=== PATIENT | male | born 1965 | race American Indian/Alaskan Native ===

== ENCOUNTER 2020-10-23 03:53 | Emergency (ER) | payer MEDICARE ==
--- NOTE | 2020-10-23 10:39 | Electrocardiograph Report ---
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
[2020-10-23] MEDS ORDERED: levETIRAcetam 1000 MG/NS 0.75% 1,000 MG/100 ML BAG IV ONE (14:03)
--- NOTE | 2020-10-23 14:03 | Emergency Department Report ---
ED Chest Pain HPI - General Chief Complaint: Chest Pain Stated Complaint: CHEST PAIN Time Seen by Provider: 10/23/20 13:26 Source: patient Mode of arrival: Stretcher Limitations: No Limitations, Physical Limitation - History of Present Illness Initial Comments: This is a 58-year-old -[place] male presents to the emergency department via EMS with complaint of midsternal chest pain and shortness of breath that started last night. The patient does admit to smoking crack cocaine earlier this morning. He also says that he had a seizure. He admits to a history of a seizure disorder but says that he is not on any medication for it as "they sto pped giving it to me." His last seizure was about 6 months ago. Patient also has a past medical history of hypertension, diabetes, GERD. He tried an aspirin for his symptoms without any relief, although he cannot tell me whether it was a baby aspirin or full dose. No recent travel or sick contacts at home. - Related Data Home Medications Medication Instructions Recorded Confirmed Last Taken Lisinopril 40 mg PO DAILY 04/19/15 05/17/15 04/20/15 06:00 Pepcid 1 tab PO DAILY 04/19/15 05/17/15 04/19/15 09:00 Propranolol 60 mg PO PRN PRN 04/19/15 05/17/15 04/19/15 09:00 Simvastatin 20 mg PO DAILY 04/19/15 05/17/15 04/19/15 09:00 Previous Rx's Medication Instructions Recorded Last Taken Type Albuterol Mdi (or & Nicu Only) 2 puff IH QID PRN #8.5 gram 10/23/20 Unknown Rx [ProAir HFA Inhaler] Ibuprofen [Motrin 600 MG tab] 600 mg PO Q8H PRN #20 tablet 10/23/20 Unknown Rx levETIRAcetam [Keppra TAB] 500 mg PO BID #60 tablet 10/23/20 Unknown Rx Allergies Allergy/AdvReac Type Severity Reaction Status Date / Time No Known Allergies Allergy Verified 10/23/20 04:07 Heart Score - HEART Score History: Slightly suspicious EKG: Non-specific Age: 45-65 Risk factors: 1-2 risk factors Troponin: < normal limit HEART Score: 3 - EKG Read Time Time EKG Completed: 04:02 EKG Read Time: 04:09 - Critical Actions Critical Actions: 0-3 pts:0.9-1.7%risk of adverse cardiac event.Candidate for discharge ED Review of Systems ROS: Stated complaint: CHEST PAIN Other details as noted in HPI Comment: All other systems reviewed and negative Constitutional: denies: chills, fever Eyes: denies: eye pain, vision change ENT: denies: ear pain, throat pain Respiratory: shortness of breath. denies: cough Cardiovascular: chest pain. denies: palpitations, edema Gastrointestinal: denies: abdominal pain, vomiting Genitourinary: denies: dysuria, discharge Musculoskeletal: denies: back pain, joint swelling Skin: denies: rash, change in color Neurological: other (seizure). denies: headache, weakness ED Past Medical Hx - Past Medical History Hx Hypertension: Yes Hx GERD: Yes Hx Arthritis: Yes (LEFT SHOULDER) Hx Headaches / Migraines: Yes (MIGRAINES) - Surgical History Past Surgical History?: No - Social History Smoking Status: Never Smoker Substance Use Type: None - Medications Home Medications: Home Medications Medication Instructions Recorded Confirmed Last Taken Type Lisinopril 40 mg PO DAILY 04/19/15 05/17/15 04/20/15 06:00 History Pepcid 1 tab PO DAILY 04/19/15 05/17/15 04/19/15 09:00 History Propranolol 60 mg PO PRN PRN 04/19/15 05/17/15 04/19/15 09:00 History Simvastatin 20 mg PO DAILY 04/19/15 05/17/15 04/19/15 09:00 History Albuterol Mdi (or & Nicu Only) 2 puff IH QID PRN #8.5 gram 10/23/20 Unknown Rx [ProAir HFA Inhaler] Ibuprofen [Motrin 600 MG tab] 600 mg PO Q8H PRN #20 tablet 10/23/20 Unknown Rx levETIRAcetam [Keppra TAB] 500 mg PO BID #60 tablet 10/23/20 Unknown Rx ED Physical Exam - General Limitations: No Limitations - Other Other exam information: GENERAL: The patient is well-developed well-nourished. HENT: Normocephalic. Atraumatic. Patient has moist mucous membranes. EYES: Extraocular motions are intact. NECK: Supple. Trachea is midline. CHEST/LUNGS: Clear to auscultation. There is no respiratory distress noted. HEART/CARDIOVASCULAR: Regular. There is no tachycardia. There is no murmur. ABDOMEN: Abdomen is soft, nontender. Patient has normal bowel sounds. There is no abdominal distention. SKIN: Skin is warm and dry. NEURO: The patient is awake, alert, and oriented. The patient is cooperative. The patient has no focal neurologic deficits. Normal speech. Cranial nerves II through XII grossly intact. MUSCULOSKELETAL: There is no tenderness or deformity. There is no limitation range of motion. ED Course Vital Signs 10/23/20 10/23/20 10/23/20 04:06 14:04 19:00 Temperature 97.8 F Pulse Rate 89 60 Respiratory 18 17 Rate Blood Pressure 116/72 Blood Pressure 124/79 [Left] O2 Sat by Pulse 96 98 100 Oximetry 10/23/20 20:00 Temperature Pulse Rate 64 Respiratory 16 Rate Blood Pressure Blood Pressure 127/68 [Left] O2 Sat by Pulse Oximetry ADAM score - Aadm Score Age > 65: (0) No Aspirin use within the Past 7 Days: (0) No 3 or more CAD Risk Factors: (0) No 2 or more Angina events in past 24 hrs: (1) Yes Known CAD with more than 50% Stenosis: (0) No Elevated Cardiac Markers: (0) No ST Deviation Greater than 0.5mm: (0) No ADAM Score: 1 ED Medical Decision Making - Lab Data Result diagrams: 10/23/20 14:34 10/23/20 14:34 Lab Results 10/23/20 10/23/20 10/23/20 Range/Units 14:23 14:34 14:34 WBC 4.8 (4.5-11.0) K/mm3 RBC 4.14 (3.65-5.03) M/mm3 Hgb 12.7 (11.8-15.2) gm/dl Hct 38.2 (35.5-45.6) % MCV 92 (84-94) fl MCH 31 (28-32) pg MCHC 33 (32-34) % RDW 15.0 (13.2-15.2) % Plt Count 171 (140-440) K/mm3 Lymph % (Auto) 15.8 (13.4-35.0) % Mclean % (Auto) 13.1 H (0.0-7.3) % Eos % (Auto) 3.5 (0.0-4.3) % Baso % (Auto) 0.4 (0.0-1.8) % Lymph # (Auto) 0.8 L (1.2-5.4) K/mm3 Mclean # (Auto) 0.6 (0.0-0.8) K/mm3 Eos # (Auto) 0.2 (0.0-0.4) K/mm3 Baso # (Auto) 0.0 (0.0-0.1) K/mm3 Seg Neutrophils % 67.2 (40.0-70.0) % Seg Neutrophils # 3.2 (1.8-7.7) K/mm3 D-Dimer 536.62 H (0-234) ng/mlDDU Sodium (137-145) mmol/L Potassium (3.6-5.0) mmol/L Chloride (98-107) mmol/L Carbon Dioxide (22-30) mmol/L Anion Gap mmol/L BUN (9-20) mg/dL Creatinine (0.8-1.3) mg/dL Estimated GFR ml/min BUN/Creatinine Ratio % Glucose (75-100) mg/dL Calcium (8.4-10.2) mg/dL Total Bilirubin (0.1-1.2) mg/dL AST (5-40) units/L ALT (7-56) units/L Alkaline Phosphatase (35-129) units/L Troponin T (0.00-0.029) ng/mL Total Protein (6.3-8.2) g/dL Albumin (3.9-5) g/dL Albumin/Globulin Ratio % Urine Color (Yellow) Urine Turbidity (Clear) Urine pH (5.0-7.0) Ur Specific [place] (1.003-1.030) Urine Protein (Negative) mg/dL Urine Glucose (UA) (Negative) mg/dL Urine Ketones (Negative) mg/dL Urine Blood (Negative) Urine Nitrite (Negative) Urine Bilirubin (Negative) Urine Urobilinogen (<2.0) mg/dL Ur Leukocyte Esterase (Negative) Urine WBC (Auto) (0.0-6.0) /HPF Urine RBC (Auto) (0.0-6.0) /HPF Urine Mucus /HPF Urine Opiates Screen Positive Urine Methadone Screen Negative Ur Barbiturates Screen Negative Ur Phencyclidine Scrn Negative Ur Amphetamines Screen Negative U Benzodiazepines Scrn Negative Urine Cocaine Screen Positive U Marijuana (THC) Screen Negative Drugs of Abuse Note Disclamer 10/23/20 10/23/20 10/23/20 Range/Units 14:34 17:22 Unknown WBC (4.5-11.0) K/mm3 RBC (3.65-5.03) M/mm3 Hgb (11.8-15.2) gm/dl Hct (35.5-45.6) % MCV (84-94) fl MCH (28-32) pg MCHC (32-34) % RDW (13.2-15.2) % Plt Count (140-440) K/mm3 Lymph % (Auto) (13.4-35.0) % Mclean % (Auto) (0.0-7.3) % Eos % (Auto) (0.0-4.3) % Baso % (Auto) (0.0-1.8) % Lymph # (Auto) (1.2-5.4) K/mm3 Mclean # (Auto) (0.0-0.8) K/mm3 Eos # (Auto) (0.0-0.4) K/mm3 Baso # (Auto) (0.0-0.1) K/mm3 Seg Neutrophils % (40.0-70.0) % Seg Neutrophils # (1.8-7.7) K/mm3 D-Dimer (0-234) ng/mlDDU Sodium 142 (137-145) mmol/L Potassium 4.1 (3.6-5.0) mmol/L Chloride 105.5 (98-107) mmol/L Carbon Dioxide 26 (22-30) mmol/L Anion Gap 15 mmol/L BUN 21 H (9-20) mg/dL Creatinine 0.9 (0.8-1.3) mg/dL Estimated GFR > 60 ml/min BUN/Creatinine Ratio 23 % Glucose 97 (75-100) mg/dL Calcium 8.6 (8.4-10.2) mg/dL Total Bilirubin < 3.00 H (0.1-1.2) mg/dL AST 18 (5-40) units/L ALT 16 (7-56) units/L Alkaline Phosphatase 72 (35-129) units/L Troponin T < 0.010 < 0.010 (0.00-0.029) ng/mL Total Protein 6.7 (6.3-8.2) g/dL Albumin 4.1 (3.9-5) g/dL Albumin/Globulin Ratio 1.6 % Urine Color Sunshine (Yellow) Urine Turbidity Turbid (Clear) Urine pH 5.0 (5.0-7.0) Ur Specific [place] 1.031 H (1.003-1.030) Urine Protein 100 mg/dl (Negative) mg/dL Urine Glucose (UA) 50 (Negative) mg/dL Urine Ketones Neg (Negative) mg/dL Urine Blood Neg (Negative) Urine Nitrite Neg (Negative) Urine Bilirubin Neg (Negative) Urine Urobilinogen < 2.0 (<2.0) mg/dL Ur Leukocyte Esterase Neg (Negative) Urine WBC (Auto) 7.0 H (0.0-6.0) /HPF Urine RBC (Auto) 6.0 (0.0-6.0) /HPF Urine Mucus 3+ /HPF Urine Opiates Screen Urine Methadone Screen Ur Barbiturates Screen Ur Phencyclidine Scrn Ur Amphetamines Screen U Benzodiazepines Scrn Urine Cocaine Screen U Marijuana (THC) Screen Drugs of Abuse Note - EKG Data -: EKG Interpreted by Me EKG shows normal: sinus rhythm, axis, intervals, QRS complexes (LVH), ST-T waves (Nonspecific T waves lateral leads) Rate: normal - EKG Data When compared to previous EKG there are: previous EKG unavailable Interpretation: other (Sinus rhythm at 86 bpm, normal axis, normal intervals, L VH, nonspecific T waves to the anterolateral leads) - Radiology Data Radiology results: image reviewed interpreted by me: Chest x-ray does not show any acute process. There are no pleural effusions, obvious pneumonia and there is no pneumothorax. No widened mediastinum. - Medical Decision Making This patient presents to the emergency department with complaint of midsternal chest pain that has been going on since last night or early this morning. He also complains of having a seizure with history of a seizure disorder, but noncompliant on medications. The patient also admits to recent crack cocaine use. Heart and lung sounds are normal to auscultation. The patient does not appear in any respiratory or acute distress. No focal, motor or sensory deficits and his cranial nerves are intact. EKG does not have any morphology consistent with ST elevation myocardial infarction. Patient was given a loading dose of Keppra. Chest x-ray does not show any pneumonia, pleural effusions, pneumothorax, widened mediastinum, or any other acute process. Labs have been mostly unremarkable including CBC, metabolic panel, negative troponins x2, but the patient did have an elevated and equivocal D-dimer. For this reason the patient had a CT angiography of the chest that did not show any pulmonary embolism, dissection, or any other acute process. Vital signs have been reassuring throughout his ED course including being afebrile. The patient is low on the heart and ADAM score. For all these reasons the patient appears safe for discharge home at this time. His contact information has been sent over to the [facility], and someone from their office should be contacting him shortly for close outpatient follow-up as part of our [facility] low risk chest pain protocol. We discussed avoiding any further illicit drug use, any alcohol use/abuse. Patient has been given a prescription for Keppra. He understands that he is not allowed to drive or operate any heavy machinery due to his seizure disorder. He has been given an outpatient referral for a local neurologist. He will return to the emergency department with any worsening of his symptoms or with any acute distress. Critical Care Time: No Critical care attestation.: If time is entered above; I have spent that time in minutes in the direct care of this critically ill patient, excluding procedure time. ED Disposition Clinical Impression: Cocaine abuse, Seizure Chest pain Qualifiers: Chest pain type: unspecified Qualified Code(s): R07.9 - Chest pain, unspecified Disposition: DC-01 TO HOME OR SELFCARE Is pt being admited?: No Condition: Stable Instructions: Stimulant Use Disorder-Cocaine, Nonspecific Chest Pain, Adult Additional Instructions: Please follow-up with a primary care physician in the next few days. Please avoid any further illicit drug use. I am sending your contact information over to the [facility], and someone from their office should be contacting you shortly for close outpatient follow-up. Just in case, I am giving you a referral for one of their cartographic aide, Dr. Mendoza. I have given you a prescription for Keppra for treatment of your seizures. I peralta ve given you a referral for a local neurologist, Dr. Hernandez, to follow-up regarding your history of seizures. Please avoid any further illicit drug use. Please avoid any alcohol use/abuse. Try to avoid any excessive caffeine use. Due to your seizure activity, you are not allowed to drive or operate any vehicles or heavy machinery for at least 6 months, or until cleared by a neurologist. Return to the emergency department with any worsening of your symptoms, new or concerning symptoms not addressed during this current emergency department visit, or with any acute distress. Prescriptions: levETIRAcetam [Keppra TAB] 500 mg PO BID #60 tablet Ibuprofen [Motrin 600 MG tab] 600 mg PO Q8H PRN #20 tablet PRN Reason: Pain Albuterol Mdi (or & Nicu Only) [ProAir HFA Inhaler] 2 puff IH QID PRN #8.5 gram PRN Reason: Shortness Of Breath Referrals: [facility] [Provider Group] - 2-3 Days ALBAN ALMAZAN MD [Staff Physician] - 2-3 Days PRASHANTH RODRIGUEZ MD [Primary Care Provider] - 2-3 Days TARAN MENDOZA MD [Staff Physician] - 2-3 Days DENISE HERNANDEZ MD [Referring] - 3-5 Days Forms: Work/School Release Form(ED) Time of Disposition: 19:41
--- NOTE | 2020-10-23 14:28 | XRay Report ---
CHEST 1 VIEW 10/23/2020 1:21 PM INDICATION / CLINICAL INFORMATION: Chest pain. COMPARISON: None available. FINDINGS: SUPPORT DEVICES: None. HEART / MEDIASTINUM: No significant abnormality. LUNGS / PLEURA: No significant pulmonary or pleural abnormality. No pneumothorax. ADDITIONAL FINDINGS: No significant additional findings. IMPRESSION: 1. No acute findings. Signer Name: Marcus Falcon MD Signed: 10/23/2020 2:23 PM Workstation Name: [facility]
[2020-10-23 14:44] LABS: Amphetamine Screen,Urine Negative; Benzodiazepines Screen,Urine Negative; Cannabinoid Screen,Urine Negative; Methadone Screen,Urine Negative
[2020-10-23] MEDS ORDERED: IPRATROPIUM/ALBUTEROL SULFATE 3 ML AMPUL.NEB IH ONE (14:50)
[2020-10-23 15:10] LABS: Cocaine Screen,Urine Positive; Opiate Screen,Urine Positive
[2020-10-23 15:45] LABS: Basophils % (Auto) 0.4 % (0.0-1.8); Eosinophils # (Auto) 0.2 K/mm3 (0.0-0.4); Eosinophils % (Auto) 3.5 % (0.0-4.3); Hematocrit 38.2 % (35.5-45.6); Hemoglobin 12.7 gm/dl (11.8-15.2); Lymphocytes # (Auto) 0.8 K/mm3 (1.2-5.4); Lymphocytes % (Auto) 15.8 % (13.4-35.0); Mean Corpuscular HGB Conc 33 % (32-34); Mean Corpuscular Volume 92 fl (84-94); Monocytes # (Auto) 0.6 K/mm3 (0.0-0.8); Monocytes % (Auto) 13.1 % (0.0-7.3); Platelet Count 171 K/mm3 (140-440); Red Blood Count 4.14 M/mm3 (3.65-5.03)
[2020-10-23 16:22] LABS: Alanine Aminotransferase 16 units/L (7-56); Albumin 4.1 g/dL (3.9-5); BUN/Creatinine Ratio 23; Blood Urea Nitrogen 21 mg/dL (9-20)
[2020-10-23 16:36] LABS: Calcium 8.6 mg/dL (8.4-10.2)
[2020-10-23] MEDS ORDERED: KETOROLAC 30 MG/1 ML INJ IV ONE (18:18)
--- NOTE | 2020-10-23 18:23 | Cat Scan Report ---
CTA CHEST WITH CONTRAST INDICATION / CLINICAL INFORMATION: Chest pain and elevated d-dimer. TECHNIQUE: Axial CT images were obtained through the chest after injection of 100 cc Omnipaque 350 IV contrast. 3 plane MIP and/or 3D reconstructions were produced. All CT scans at this location are per formed using CT dose reduction for ALARA by means of automated exposure control. COMPARISON: None available. FINDINGS: PULMONARY ARTERIES: There is good opacification of the pulmonary arterial system bilaterally without intraluminal filling defect suggest acute PTE. THORACIC AORTA: Mild ectasia of the ascending thoracic aorta with a maximal transverse measurement of approximately 3.8 cm. No evidence of dissection. HEART: Mildly enlarged with a left ventricular configuration. CORONARY ARTERY CALCIFICATION: Minimal MEDIASTINUM / BOB: No significant abnormality. PLEURA: No pleural effusion. No pneumothorax. LUNGS: No acute air space or interstitial disease. ADDITIONAL FINDINGS: None. UPPER ABDOMEN: No acute findings. SKELETAL STRUCTURES: No significant osseous abnormality. IMPRESSION: 1. No CT evidence for pulmonary embolism. 2. No acute findings. Signer Name: Ronaldo Magdaleno MD Signed: 10/23/2020 6:19 PM Workstation Name: [id number]
[2020-10-23 19:27] LABS: Bilirubin,Urine NEG (Negative); Blood,Urine NEG (Negative); Color,Urine Amber (Yellow); Mucus,Urine 3+ /HPF; Urobilinogen,Urine < 2.0 mg/dL (<2.0)
[2020-10-24 04:35] VITALS: BP 127/68
== END 2020-10-24 04:07 | disposition home or self-care (01) ==
LOC: ED 03:53
DX: R07.9 Chest pain, unspecified (principal); R56.9 Unspecified convulsions; F14.10 Cocaine abuse, uncomplicated; I10 Essential (primary) hypertension; K21.9 Gastro-esophageal reflux disease without esophagitis; G43.909 Migraine, unspecified, not intractable, without status migrainosus; M13.812 Other specified arthritis, left shoulder
CPT/HCPCS: 36415; 71045; 71275; 80053; 80307; 81001; 84484; 85025; 85379; 93005; 94640; 96374; 96375; 99285; J1885; J1953; Q9967; 94644; 96365